=== PATIENT | male | born 1965 | race American Indian/Alaskan Native ===

== ENCOUNTER 2016-05-08 04:33 | Emergency (ER) | payer OTHER ==
[2016-05-08 04:43] VITALS: BP 156/84; PULSE 62; RESP 18; TEMP 98.2; O2SAT 98
--- NOTE | 2016-05-08 04:48 | ED PDOC ---
Arrival/HPI - General Chief Complaint: Finger,Hand,&Wrist Time Seen by Provider: 05/08/16 04:34 Historian: Patient - History of Present Illness Narrative History of Present Illness (Text): 05/08/16 04:46 Eddie Mejia is a 51 year old male who presents to the emergency department complaining of right lateral wrist pain for the past week. Reports that pain is worsened with movement and better with rest. Patient reports that he has to lift/move heavy boxes at work. Denies any swelling, numbness or limited range of motion of right wrist. Denies any other complaints at this time. Time/Duration: 1 week Symptom Onset: Gradual Symptom Course: Unchanged Severity Level: Mild Activities at Onset: Significant Context: Work (lifting boxes ) Past Medical History - Provider Review Nursing Documentation Reviewed: Yes - Psychiatric Hx Substance Use: No Family/Social History - Physician Review Nursing Documentation Reviewed: Yes Family/Social History: No Known Family HX Smoking Status: no Hx Alcohol Use: No Hx Substance Use: No Substance used: no Allergies/Home Meds Allergies/Adverse Reactions: Allergies No Known Allergies Allergy (Verified 05/08/16 04:43) Physical Exam - Physical Exam Narrative Physical Exam (Text): - Review of Systems Constitutional: Normal. absent: Fatigue, Weight Change, Fevers Eyes: Normal ENT: Normal Respiratory: Normal absent: SOB, Cough, Sputum Cardiovascular: Normal absent: Chest pain, Palpitations, Syncope Gastrointestinal: Normal absent: Abdominal pain, Diarrhea, Nausea, Vomiting Genitourinary: Normal. absent: Dysuria, Frequency, Hematuria Musculoskeletal: Present: Right lateral wrist pain absent: Arthralgias, Back Pain, Neck Pain Skin: Normal Neurological: Normal absent: Focal Weakness Endocrine: Normal Hemo/Lymphatic: Normal Psychiatric: Normal - Physical exam Patient appears age appropriate, speaking full sentences without difficulty - Systems Exam Head: Present: Atraumatic, Normocephalic Pupils: Present: PERRL Extraocular Muscles: Present: EOMI Conjunctiva: Present: Normal Mouth: Present: Moist Mucous Membranes Neck: Present: Normal Range of Motion. No: MIDLINE TENDERNESS, Paraspinal Tenderness Respiratory/Chest: Present: Clear to Auscultation, Good Air Exchange. No: Respiratory Distress, Accessory Muscle Use, Tachypneic Cardiovascular: Present: Regular Rate and Rhythm, Normal S1, S2, Peripheral Pulses Present. No: Murmurs Abdomen: Present: Normal Bowel Sounds, No: Tenderness, Peritoneal Signs, Rebound, Guarding, Distention Back: Present: Normal Inspection. No: Midline Tenderness, Paraspinal Tenderness Upper Extremity: Present: Right Rubina test positive. Active and Passive full range of motion. No: Cyanosis, Edema, Snuff box tenderness Lower Extremity: Present: Normal Inspection. No: Edema Neurological: Present: GCS=15, Speech Normal, cranial nerves II through XII fully intact with no cerebellar abnormality, neuro-sensory fully intact. No focal neurological deficits. Skin: Present: Warm, Dry, Normal Color. No: Rashes Lymphatic: Present: OX3, NI, NC Psychiatric: Present: Alert, Oriented x 3, Normal Insight, Normal Concentration Vital Signs Reviewed: Yes Vital Signs Temp Pulse Resp BP Pulse Ox 05/08/16 04:40 98.2 F 62 18 156/84 H 98 Temperature: Afebrile Blood Pressure: Normal Pulse: Regular Respiratory Rate: Normal Appearance: Positive for: Well-Appearing, Non-Toxic, Comfortable Pain Distress: None Mental Status: Positive for: Alert and Oriented X 3 Medical Decision Making ED Course and Treatment: 05/08/16 04:51 Impression: A 51 year old male presenting to ed for evaluation of right lateral wrist pain for past week. Patient denies any trauma or injury. On PE, Right Rubina test positive, but no snuff box tenderness. Distal neurovascular fully intact with full active/passive ROM. Differential Diagnosis include but are not limited to: Tendonitis Plan: -- Toradol -- Splint Progress Notes: 05/08/16 04:55 Splint applied to right thumb and discharged patient home on Motrin. Advised to present to ed if symptoms worsen and follow up with orthopedist within 1-2 days for further evaluation. Pt states he understands to return to the ER right away for new or worsening symptoms or for inability to f/u with PMD or specialist as instructed. Patient states that he fully agrees with and understands discharge instructions. States that he agrees with the plan and disposition. Verbalized and repeated discharge instructions and plan. I have given the patient opportunity to ask any additional questions. - Medication Orders Current Medication Orders: Discontinued Medications Ketorolac Tromethamine (Toradol) 30 mg IM STAT STA Stop: 05/08/16 04:45 Last Admin: 05/08/16 04:51 Dose: 30 MG IM Administration Charges Document 05/08/16 04:51 MJ (Rec: 05/08/16 04:52 MJ [id number]) Injection Site MAR Injection Site Right Deltoid Charges for Administration # of IM Administrations 1 - Scribe Statement The provider has reviewed the documentation as recorded by the Mariann Dupree Provider Attestation: All medical record entries made by the Scribe were at my direction and personally dictated by me. I have reviewed the chart and agree that the record accurately reflects my personal performance of the history, physical exam, medical decision making, and the department course for this patient. I have also personally directed, reviewed, and agree with the discharge instructions and disposition. Disposition/Present on Arrival - Present on Arrival Any Indicators Present on Arrival: No History of DVT/PE: No History of Uncontrolled Diabetes: No Urinary Catheter: No History of Decub. Ulcer: No History Surgical Site Infection Following: None - Disposition Have Diagnosis and Disposition been Completed?: Yes Diagnosis: Wrist pain Disposition: HOME/ ROUTINE Disposition Time: 04:53 Patient Plan: Discharge Condition: GOOD Discharge Instructions (ExitCare): Wrist Injury (ED), De Quervain Disease (ED) , Tenosynovitis (ED), Tendinitis (ED) Additional Instructions: PLEASE RETURN TO THE EMERGENCY DEPARTMENT FOR NEW OR WORSENING SYMPTOMS. RETURN RIGHT AWAY IF YOU CANNOT FOLLOW UP WITH YOUR PRIMARY CARE DOCTOR, CLINIC, OR SPECIALIST IN 1-2 DAYS. Prescriptions: Ibuprofen [Motrin] 600 mg PO Q8 PRN #12 tab PRN Reason: Pain, Moderate (4-7) Referrals: Melvin Real DO [Staff Provider] - Follow up with primary Genevieve Tran MD [Staff Provider] - Follow up with primary Bob Olson MD [Staff Provider] - Follow up with primary
== END 2016-05-08 05:15 | disposition home or self-care (01) ==
LOC: ED 04:33
DX: M25.531 Pain in right wrist (principal)
CPT/HCPCS: 29130; 96372; 99282; J1885